=== PATIENT | female | born 1975 | race Caucasian/White ===

== ENCOUNTER 2018-07-31 20:40 | Emergency (ER) | payer OTHER ==
[2018-07-31 21:16] VITALS: BP 126/70; PULSE 92; TEMP 98; BMI 30.7
[2018-07-31] MEDS ORDERED: PENICILLIN G BENZATHINE 1,200,000 UNIT/2 ML PFS IM ONE (21:28)
[2018-07-31] MEDS ORDERED: DEXAMETHASONE LIQUID 0.5 MG/5 ML 240 ML BULK BOTTLE PO ONE (21:28)
[2018-07-31] MEDS ORDERED: PENICILLIN G BENZATHINE 2,400,000 UNIT/4 ML PFS ONE (21:30)
[2018-07-31] MEDS ORDERED: DEXAMETHASONE SOD PHOSPHATE 10 MG/1 ML VIAL ONE (21:30)
--- NOTE | 2018-07-31 21:32 | PDOC ---
History of Present Illness - General Chief Complaint: Sore Throat Stated Complaint: SINUSITIS Time Seen by Provider: 07/31/18 21:23 - History of Present Illness Initial Comments: 07/31/18 21:30 42-year-old female without comorbidities presents for evaluation of sore throat 2 days. No fever Past History - Past Medical History Allergies/Adverse Reactions: Allergies Allergy/AdvReac Type Severity Reaction Status Date / Time No Known Allergies Allergy Verified 03/12/16 14:08 Home Medications: Ambulatory Orders NK [No Known Home Medication] 03/12/16 Cardiac Disorders: No CVA: No COPD: No - Surgical History GI Surgery: Yes (GASTRIC BY-PASS) - Reproductive History (#): 7 Para: 3 Therapeutic (s) & number: No Spontaneous : 3 - Immunization History Immunization Up to Date: Yes - Suicide/Smoking/Psychosocial Hx Smoking Status: No Smoking History: Never smoked Have you smoked in the past 12 months: No Number of Cigarettes Smoked Daily: 0 Information on smoking cessation initiated: No Hx Alcohol Use: No Drug/Substance Use Hx: No Substance Use Type: None Review of Systems - Review of Systems Constitutional: No: Fever HEENTM: Yes: Throat Pain, Difficulty Swallowing *Physical Exam - Vital Signs Last Vital Signs Temp Pulse Resp BP Pulse Ox 98 F 92 H 20 126/70 98 07/31/18 21:11 07/31/18 21:11 07/31/18 21:11 07/31/18 21:11 07/31/18 21:11 - Physical Exam Comments: 07/31/18 21:31 HEAD: NC/AT EYES: Conjuntiva clear Ears: Canals and TM's normal NOSE: No d/c THROAT: Moist mucous membrances, oral pharanx erythemic with exudate, uvula midline NECK: Supple without adenopathy CARDIAC: S1 S2 LUNGS: CTA Full and Equal breath sounds ABDOMEN: Soft NT ND MS: Full ROM in all joints without edema NEUROLOGIC: No gross sensory or motor deficits, NVID SKIN: Normal color and temperature no lesions or rashes Moderate Sedation - Procedure Monitoring Vital Signs: Procedure Monitoring Vital Signs Temperature 98 F 07/31/18 21:11 Pulse Rate 92 H 07/31/18 21:11 Respiratory Rate 20 07/31/18 21:11 Blood Pressure 126/70 07/31/18 21:11 O2 Sat by Pulse Oximetry (%) 98 02/20/19 21:11 *DC/Admit/Observation/Transfer Diagnosis at time of Disposition: Strep pharyngitis - Discharge Dispostion Disposition: HOME Condition at time of disposition: Stable Decision to Admit order: No - Referrals Referrals: Sincere Elizalde MD [Primary Care Provider] - - Patient Instructions Printed Discharge Instructions: Strep Throat, DI for Strep Throat Additional Instructions: Laboratory such as Advil Motrin Aleve or ibuprofen or Naprosyn. He may take Tylenol for pain. Warm salt water gargles will help with her pain. He will given a one-time dose of antibiotic which will cure your strep throat. Follow- up with your primary care physician in one to 2 days for further evaluation and treatment options and return to the emergency room for worsening of symptoms. - Post Discharge Activity
== END 2018-07-31 22:00 | disposition home or self-care (01) ==
LOC: JERFT 20:40
DX: J02.0 Streptococcal pharyngitis (principal); B95.5 Unspecified streptococcus as the cause of diseases classified elsewhere
CPT/HCPCS: 99281-25

== ENCOUNTER 2018-09-29 23:31 | Inpatient (IN) | payer OTHER ==
[2018-09-30] MEDS ORDERED: ONDANSETRON 4 MG/2 ML VIAL IVPUSH ONE (01:30)
[2018-09-30] MEDS ORDERED: ONDANSETRON 4 MG/2 ML VIAL IVPB ONE (01:43)
[2018-09-30] MEDS ORDERED: ONDANSETRON 4 MG/2 ML VIAL ONE (01:43)
[2018-09-30] MEDS ORDERED: SODIUM CHLORIDE 1,000 ML IV STA (01:54)
[2018-09-30] MEDS ORDERED: ACETAMINOPHEN 1000 MG/100 ML VIAL (NON FORMULARY) IVPB ONE (01:54)
[2018-09-30 02:09] LABS: BASO % 0.2 % (0-2.0); EOS % 0.1 % (0-4.5); HEMATOCRIT 44.3 % (32.4-45.2); HEMOGLOBIN 14.7 GM/dL (10.7-15.3); LYMPH % 8.2 % (8-40); MCH 29.8 pg (25.7-33.7); MCHC 33.2 g/dl (32.0-36.0); MEAN CELL VOLUME 89.8 fl (80-96); MEAN PLT VOLUME 9.1 fl (7.5-11.1); MONO % 3.4 % (3.8-10.2); NEUT % 88.1 % (42.8-82.8); PLATELET COUNT 256 K/MM3 (134-434); RBC 4.93 M/mm3 (3.60-5.2); RDW 13.6 % (11.6-15.6); WHITE BLOOD COUNT 14.9 K/mm3 (4.0-10.0)
[2018-09-30 02:11] LABS: INR 1.03 (0.83-1.09); PROTHROMBIN TIME (PATIENT) 12.1 SEC (9.7-13.0)
[2018-09-30 02:24] LABS: ALBUMIN 4.4 g/dl (3.4-5.0); ALK PHOS 103 U/L (45-117); ANION GAP 8 MMOL/L (8-16); BILIRUBIN,TOTAL 0.7 mg/dL (0.2-1); BLOOD UREA NITROGEN 19 mg/dL (7-18); CHLORIDE 103 mmol/L (98-107); CO2 23 mmol/L (21-32); GLUCOSE,RANDOM 187 mg/dL (74-106); LIPASE 457 U/L (73-393); POTASSIUM 4.1 mmol/L (3.5-5.1); SGOT/AST 33 U/L (15-37); SGPT/ALT 50 U/L (13-61); SODIUM 134 mmol/L (136-145); TOT PROT 8.5 g/dl (6.4-8.2)
--- NOTE | 2018-09-30 02:25 | PDOC ---
History of Present Illness - General Chief Complaint: Nausea/Vomiting Stated Complaint: VOMITING Time Seen by Provider: 09/30/18 01:17 - History of Present Illness Initial Comments: 09/30/18 02:41 43F with pmh of gastric bypass and 3 presents with vomiting and URQ abdominal pain since 8pm today. She has been continuously vomiting since then. Hasn't been able to eat since then. No sick contacts. No pmh of gallstones. Past History - Past Medical History Allergies/Adverse Reactions: Allergies Allergy/AdvReac Type Severity Reaction Status Date / Time No Known Allergies Allergy Verified 09/30/18 00:03 Home Medications: Ambulatory Orders NK [No Known Home Medication] 03/12/16 Cardiac Disorders: No CVA: No COPD: No Other medical history: Pt denies - Surgical History GI Surgery: Yes (GASTRIC BY-PASS) - Reproductive History (#): 7 Para: 3 Therapeutic (s) & number: No Spontaneous : 3 - Immunization History Immunization Up to Date: Yes - Suicide/Smoking/Psychosocial Hx Smoking Status: No Smoking History: Never smoked Have you smoked in the past 12 months: No Number of Cigarettes Smoked Daily: 0 Information on smoking cessation initiated: No Hx Alcohol Use: No Drug/Substance Use Hx: No Substance Use Type: None Review of Systems - Review of Systems Able to Perform ROS?: Yes Is the patient limited Monegasque proficient: No Constitutional: Yes: Loss of Appetite. No: Fever HEENTM: No: Symptoms Reported Respiratory: No: Symptoms reported Cardiac (ROS): No: Symptoms Reported ABD/GI: Yes: See HPI : No: Symptoms Reported Musculoskeletal: No: Symptoms Reported Integumentary: No: Symptoms Reported Neurological: No: Symptoms reported All Other Systems: Reviewed and Negative *Physical Exam - Vital Signs Last Vital Signs Temp Pulse Resp BP Pulse Ox 97.7 F 77 20 115/75 100 09/30/18 00:04 09/30/18 00:04 09/30/18 00:04 09/30/18 00:04 09/30/18 00:04 - Physical Exam General Appearance: Yes: Moderate Distress, Obese HEENT: positive: EOMI, AIDEE, Normal ENT Inspection Respiratory/Chest: positive: Lungs Clear, Normal Breath Sounds. negative: Chest Tender, Respiratory Distress Cardiovascular: positive: Regular Rhythm, Regular Rate, S1, S2 Gastrointestinal/Abdominal: positive: Normal Bowel Sounds, Tender (URQ tenderness and epigastric), Flat, Soft Musculoskeletal: positive: Normal Inspection. negative: CVA Tenderness Extremity: positive: Normal Capillary Refill, Normal Inspection, Normal Range of Motion Integumentary: positive: Normal Color, Dry, Warm Neurologic: positive: Fully Oriented, Alert, Normal Mood/Affect ED Treatment Course - LABORATORY CBC & Chemistry Diagram: 09/30/18 01:48 09/30/18 01:48 - ADDITIONAL ORDERS Additional order review: Laboratory Results 09/30/18 09/30/18 01:48 01:48 PT with INR 12.10 INR 1.03 Serum , Qual Negative 09/30/18 01:48 RBC 4.93 MCV 89.8 MCHC 33.2 RDW 13.6 D MPV 9.1 Neutrophils % 88.1 H D Lymphocytes % 8.2 D Monocytes % 3.4 L Eosinophils % 0.1 D Basophils % 0.2 - RADIOLOGY Radiology Studies Ordered: Category Date Time Status ABDOMEN US -LIMITED [US] Stat Ultrasound 09/30/18 01:29 Taken - Medications Given in the ED: ED Medications Discontinued Medications Generic Name Dose Route Start Last Admin Trade Name Freq PRN Reason Stop Dose Admin Ondansetron HCl 4 mg 09/30/18 01:30 09/30/18 01:47 Zofran Injection IVPUSH 09/30/18 01:31 Not Given ONCE ONE Ondansetron HCl 8 mg 09/30/18 01:43 09/30/18 01:47 Zofran Injection IVPB 09/30/18 01:44 8 mg ONCE ONE Administration Medical Decision Making - Medical Decision Making 09/30/18 03:13 43f with pmh of abdominal pain and vomiting. Cholecystitis vs pancreatitis vs choledocholithiasis vs sbo vs gastritis Bedside US performed, found sonographic perry's, sludge in the gb, mildly enlarged anterior wall and dilated cbd Official US : positive for dilated CBD, unable to see pancreas Patient has leukocytosis, elevated lipase Less likely to be cholecystitis du to absence of visible stones. Possible choledocholithiasis however no bili and alk phos within normal limits. Giving the patient zofran, NS, tylenol and ABX. Spoke to Dr. Bejarano who admitted the patient and ask for consult with Dr. Grijalva. Lactic acid came back at 2.5. Due to history of 4 abdominal surgeries we will r/o obstruction with ct abdomen and pelvis with IV and PO contrast. Patient unable to tolerate PO contrast. Possibly obstructed? Will obtain CT now. *DC/Admit/Observation/Transfer Diagnosis at time of Disposition: Dilated cbd, acquired, Elevated lipase, Leukocytosis, Lactic acid acidosis - Discharge Dispostion Condition at time of disposition: Guarded Decision to Admit order: Yes - Referrals - Patient Instructions - Post Discharge Activity
[2018-09-30] MEDS ORDERED: ACETAMINOPHEN INJECTION 100 ML IVPB ONE (02:30)
[2018-09-30] MEDS ORDERED: PIPERACILLIN/TAZOB 4.5 GM 4.5 GM in DEXTROSE 5%-WATER 100 ML IVPB ONE (02:52)
[2018-09-30] MEDS ORDERED: morphine CARPU-JECT 4 MG/1 ML DISP.SYRIN IVPUSH PRN (03:12)
[2018-09-30] MEDS ORDERED: DEXTROSE 5%-0.45% SALINE 1,000 ML IV SCH (03:15)
[2018-09-30] MEDS ORDERED: ACETAMINOPHEN 1000 MG/100 ML VIAL (NON FORMULARY) IVPB PRN (03:16)
[2018-09-30] MEDS ORDERED: PIPERACILLIN/TAZOB 4.5 GM 4.5 GM/100 ML BAG IVPB ONE (03:19)
--- NOTE | 2018-09-30 04:31 | PDOC ---
*Physical Exam - Vital Signs Last Vital Signs Temp Pulse Resp BP Pulse Ox 97.7 F 77 20 115/75 100 09/30/18 00:04 09/30/18 00:04 09/30/18 00:04 09/30/18 00:04 09/30/18 00:04 ED Treatment Course - LABORATORY CBC & Chemistry Diagram: 09/30/18 01:48 09/30/18 01:48 - ADDITIONAL ORDERS Additional order review: Laboratory Results 09/30/18 09/30/18 09/30/18 01:48 01:48 01:48 PT with INR 12.10 INR 1.03 Sodium Potassium Chloride Carbon Dioxide Anion Gap BUN Creatinine Creat Clearance w eGFR Random Glucose Lactic Acid 2.5 H* Calcium Total Bilirubin AST ALT Alkaline Phosphatase Troponin I Total Protein Albumin Lipase Serum , Qual Blood Type O POSITIVE Antibody Screen Negative 09/30/18 09/30/18 01:48 01:48 PT with INR INR Sodium 134 L Potassium 4.1 Chloride 103 Carbon Dioxide 23 Anion Gap 8 BUN 19 H Creatinine 1.0 Creat Clearance w eGFR 60.23 Random Glucose 187 H Lactic Acid Calcium 10.0 Total Bilirubin 0.7 AST 33 ALT 50 Alkaline Phosphatase 103 Troponin I < 0.02 Total Protein 8.5 H Albumin 4.4 Lipase 457 H Serum , Qual Negative Blood Type Antibody Screen 09/30/18 01:48 RBC 4.93 MCV 89.8 MCHC 33.2 RDW 13.6 D MPV 9.1 Neutrophils % 88.1 H D Lymphocytes % 8.2 D Monocytes % 3.4 L Eosinophils % 0.1 D Basophils % 0.2 - RADIOLOGY Radiology Studies Ordered: Category Date Time Status ABDOMEN US -LIMITED [US] Stat Ultrasound 09/30/18 01:29 Taken - Medications Given in the ED: ED Medications Discontinued Medications Generic Name Dose Route Start Last Admin Trade Name Freq PRN Reason Stop Dose Admin Acetaminophen 1,000 mg 09/30/18 01:54 09/30/18 02:34 Ofirmev Injection - IVPB 09/30/18 01:55 1,000 mg ONCE ONE Administration Sodium Chloride 1,000 mls @ 1,000 mls/hr 09/30/18 01:54 09/30/18 03:33 Normal Saline - IV 09/30/18 02:53 1,000 mls/hr ASDIR STA Administration Piperacillin Sod/Tazobactam 100 mls @ 200 mls/hr 09/30/18 02:52 09/30/18 03: 54 Sod 4.5 gm/ Dextrose IVPB 09/30/18 03:21 200 mls/hr ONCE ONE Administration Protocol Ondansetron HCl 4 mg 09/30/18 01:30 09/30/18 01:47 Zofran Injection IVPUSH 09/30/18 01:31 Not Given ONCE ONE Ondansetron HCl 8 mg 09/30/18 01:43 09/30/18 01:47 Zofran Injection IVPB 09/30/18 01:44 8 mg ONCE ONE Administration Medical Decision Making - Medical Decision Making 09/30/18 04:29 Ct abdomen with contrast: There is a small bowel obstruction small bowel dilated up to 3.9 cm. Small bowel anastomosis is noted in the left mid abdomen but this does not appear to be the transition point. No abscess or free air. Consulted Dr. Cloud who will see the patient. Placing NG tube. *DC/Admit/Observation/Transfer Diagnosis at time of Disposition: Small bowel obstruction - Discharge Dispostion Condition at time of disposition: Guarded - Referrals - Patient Instructions - Post Discharge Activity
[2018-09-30] MEDS ORDERED: morphine CARPU-JECT 2 MG/1 ML DISP.SYRIN IVPUSH ONE (04:49)
[2018-09-30] MEDS ORDERED: morphine SULFATE 4 MG/ML VIAL ONE (05:22)
[2018-09-30 06:00] LABS: BASO % 0.2 % (0-2.0); HEMATOCRIT 41.6 % (32.4-45.2); HEMOGLOBIN 13.8 GM/dL (10.7-15.3); LYMPH % 3.7 % (8-40); MCH 29.5 pg (25.7-33.7); MEAN CELL VOLUME 89.3 fl (80-96); MEAN PLT VOLUME 8.9 fl (7.5-11.1); MONO % 2.3 % (3.8-10.2); NEUT % 93.8 % (42.8-82.8); PLATELET COUNT 250 K/MM3 (134-434); RBC 4.66 M/mm3 (3.60-5.2); RDW 13.5 % (11.6-15.6); WHITE BLOOD COUNT 12.8 K/mm3 (4.0-10.0)
[2018-09-30] MEDS ORDERED: LACTATED RINGERS SOLUTION 1,000 ML/1,000 ML INFUS.BAG IV STA (06:00)
[2018-09-30 06:25] LABS: AMYLASE 109 U/L (25-115); LIPASE 419 U/L (73-393)
[2018-09-30 06:29] LABS: ALK PHOS 93 U/L (45-117); ANION GAP 7 MMOL/L (8-16); BILIRUBIN,TOTAL 0.8 mg/dL (0.2-1); BLOOD UREA NITROGEN 17 mg/dL (7-18); CALCIUM 8.7 mg/dL (8.5-10.1); CHLORIDE 107 mmol/L (98-107); CO2 24 mmol/L (21-32); GLUCOSE,RANDOM 161 mg/dL (74-106); POTASSIUM 5.4 mmol/L (3.5-5.1); SGOT/AST 34 U/L (15-37); SGPT/ALT 45 U/L (13-61); SODIUM 137 mmol/L (136-145); TOT PROT 7.4 g/dl (6.4-8.2)
[2018-09-30] MEDS ORDERED: INSULIN SLIDING SCALE (NOVOLOG) 1 VIAL SQ SCH (07:00)
--- NOTE | 2018-09-30 07:32 | CON.GI ---
Consult Consult Specialty:: GI Referred by:: Dr. Carolynn Bejarano Reason for Consultation:: Dilated CBD and elevaed lipase - History of Present Illness Chief Complaint: Abdominal pain with nausea and vomiting History of Present Illness: Patient is a 43 y/o female with no significant past medical history. Patient states that after eating dinner last night she develop right sided abdominal pain accmpanied with abdominal bloating. Patient took Milk of Magnesia without relief. Shortly after patient began experiencing nausea with vomiting. At first vomitus consisted of food contents then turned to a "phlegm" color. While vomiting patient stated she felt sweaty and had chills. While in ER labs initially noted with leukocytosis (WBC 14,900), elevated lactic acid 2.5, elevated lipase 457, normal LFTs and amylase. In ER NGT placed and is currently at LCS with 300cc brownish-red output. Patient states since NGT placed abdominal pain is better. Abdominal CT scan preliminary reading shows SBO without abscess, free airor discrete transition point. 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: Alzheimer's, CVA, Dementia, Migraine, Multiple Sclerosis, Peripheral Neuropathy, Parkinson's, Seizure, Syncope, TIA, Vertigo, Other Cardio/Vascular: No: AFIB, Aneurysm, Aortic Insufficiency, Aortic Stenosis, CAD , CHF, Deep Vein Thrombosis, HTN, Hyperlipdemia, DE, Mitral Insufficiency, Mitral Stenosis, Murmur, Pulmonary Hypertension, Other Pulmonary: No: Asthma, Bronchitis, Cancer, COPD, O2 Dependent, Pneumonia, Previously Intubated, Pulmonary Embolus, Pulmonary Fibrosis, Sleep Apnea, Other Gastrointestinal: No: Ascites, Cancer, Constipation, Crohn's Disease, Diverticulitis, Diverticulosis, Esophageal Varices, Gastritis, GERD, GI Bleed, Hemorrhoids, Hiatal Hernia, Inflamatory Bowel Disease, Irritable Bowel Disease, Pancreatitis, Peptic Ulcer Disease, Ulcerative Colitis, Other Hepatobiliary: No: Cirrhosis, Cholelithiasis, Cholecystitis, Choledocholithiasis , Hepatitis A, Hepatitis B, Hepatitis C, Other Renal/: No: Renal Failure, Renal Inusuff, BPH, Cancer, Hematuria, Hemodialysis , Neurogenic Bladder, Renal Calculi, UTI, Other Reproductive: No: Ectopic , Endometriosis, Fibroids, PID, Polycystic Ovary Syndrome, Postmenopausal, Other ...LMP: 04/07/12 Heme/Onc: No: Anemia, B12 Deficiency, Bleeding Disorder, Cancer, Current Chemotherapy, Current Radiation Therapy, Hemochromatosis, Hypercoaguable State, Myeloproliferative Synd, Sickle Cell Disease, Sickle Cell Trait, Thrombocytopenia, Other Infectious Disease: No: AIDS, C-Diff, Herpes Zoster, HIV, MRSA, STD's, Tuberculosis, VREF, Other Psych: No: Addictions, Anxiety, Bipolar, Depression, Panic, Psychosis, Schizophrenia, Other Musculoskeletal: No: Bursitis, Chronic low back pain, Hemiparesis, Hemiplegia, Osteoarthritis, Paraplegia, Other Rheumatology: No: Fibromyalgia, Gout, Lupus, Rheumatoid Arthritis, Sarcoidosis, Vasculitis, Other ENT: No: Allergic Rhinitis, Sinusitis, Other Endocrine: No: [place]'s Disease, Ekaterina's Disease, Diabetes Insipidus, Diabetes Mellitus, Hyperparathyroidism, Hyperthyroidism, Hypothyroidism, Osteopenia, SIADH, Other Dermatology: No: Basal Cell, Cellulitis, Eczema, Melanoma, Psoriasis, Squamous Cell, Other - Past Surgical History Past Surgical History: Yes: Bariatric Surgery (2004), (x 3) - Alcohol/Substance Use Hx Alcohol Use: No - Smoking History Smoking history: Never smoked Have you smoked in the past 12 months: No Aproximately how many cigarettes per day: 0 - Social History History of Recent Travel: No Home Medications - Allergies Allergies/Adverse Reactions: Allergies Allergy/AdvReac Type Severity Reaction Status Date / Time No Known Allergies Allergy Verified 09/30/18 00:03 - Home Medications Home Medications: Ambulatory Orders NK [No Known Home Medication] 03/12/16 Family Disease History - Family Disease History Other Family History: Maternal Uncle-Colon Cancer, diagnosed in his 70s Review of Systems - Review of Systems Constitutional: reports: No Symptoms Eyes: reports: No Symptoms HENT: reports: No Symptoms Neck: reports: No Symptoms Cardiovascular: reports: No Symptoms Respiratory: reports: No Symptoms Gastrointestinal: reports: Abdominal Pain, Bloating, Nausea, Vomiting Genitourinary: reports: No Symptoms Breasts: reports: No Symptoms Reported Musculoskeletal: reports: No Symptoms Integumentary: reports: No Symptoms Neurological: reports: No Symptoms Endocrine: reports: No Symptoms Hematology/Lymphatic: reports: No Symptoms Psychiatric: reports: No Symptoms Physical Exam-GI Vital Signs: Vital Signs Temperature 97.9 F 09/30/18 05:50 Pulse Rate 78 09/30/18 05:50 Respiratory Rate 20 09/30/18 00:04 Blood Pressure 114/79 09/30/18 05:50 O2 Sat by Pulse Oximetry (%) 99 09/30/18 05:50 Constitutional: Yes: Well Nourished, No Distress, Calm Eyes: Yes: Conjunctiva Clear HENT: Yes: Atraumatic Cardiovascular: Yes: Regular Rate and Rhythm Respiratory: Yes: Regular, CTA Bilaterally Gastrointestinal Inspection: Yes: Scars. No: WNL, Ascites, Distention, Hernia, Other ...Auscultate: Yes: Hypoactive Bowel Sounds. No: Normoactive Bowel Sounds, Hyperactive Bowel Sounds, No Bowel Sounds, Other ...Palpate: Yes: Soft. No: Firm/Rigid, Guarding, Hepatomegaly, Mass, Pulsatile Mass, Splenomegaly, Tenderness, Tenderness, Epigastium, Tenderness, Rebound, Other ...Percussion: Yes: Other (high tympay). No: Dullness, Fluid Wave, Tympanitic Labs: CBC, BMP 09/30/18 05:43 09/30/18 05:43 INR, PTT INR 1.03 (0.83-1.09) 09/30/18 01:48 Active Medications Generic Name Dose Route Start Last Admin Trade Name Freq PRN Reason Stop Dose Admin Acetaminophen 1,000 mg 09/30/18 03:16 Ofirmev Injection - IVPB Q6H PRN pain Heparin Sodium (Porcine) 5,000 unit 09/30/18 10:00 Heparin - SQ BID RACHEL Metronidazole 500 mg in 100 mls @ 100 mls/hr 09/30/18 10:00 Flagyl 500mg Premixed Ivpb - IVPB Q8H-IV RACHEL Piperacillin Sod/Tazobactam 50 mls @ 100 mls/hr 09/30/18 10:00 Sod 3.375 gm/ Dextrose IVPB Q8H-IV RACHEL Protocol Dextrose/Sodium Chloride 1,000 mls @ 75 mls/hr 09/30/18 03:15 D5-1/2ns - IV ASDIR RACHEL Piperacillin Sod/Tazobactam 50 mls @ 100 mls/hr 09/30/18 10:00 Sod 3.375 gm/ Dextrose IVPB 09/30/18 18:29 Q8H-IV RACHEL Problem List - Problems (1) Small bowel obstruction Assessment/Plan: R>SBO R/O Small bowel ischemia >continue IV hydration but will change from D5 1/2NS to NS at 150cc/hr >NGT to LCS >serial abdominal exams >surgical follow up Code(s): K56.609 - UNSP INTESTNL OBST, UNSP TO PARTIAL VERSUS COMPLETE OBST (2) Dilated cbd, acquired Assessment/Plan: >hx of previous gastric bypass R>MRCP R/O CBD stone--if CBD stone present need to transfer to tertiary center for management Code(s): K83.8 - OTHER SPECIFIED DISEASES OF BILIARY TRACT
[2018-09-30 09:45] LABS: ANISOCYTOSIS 0; HELMET CELLS 0; HOWELL-JOLLY BODIES 0; MACROCYTOSIS 0; OVALOCYTE 0; PLATELET ESTIMATE NORMAL; ROULEAU 0; SICKELED CELLS 0; TARGET CELLS 0; TEAR DROP CELLS 0; TOXIC GRANULATION 0
[2018-09-30] MEDS ORDERED: PIPERACILLIN/TAZOB 3.375 GM 3.375 GM in DEXTROSE 5%-WATER - 50 ML IVPB SCH (10:00)
[2018-09-30] MEDS ORDERED: HEPARIN NA (PORCINE) 5,000 UNITS/ML 1ML VIAL SQ SCH (10:00)
--- NOTE | 2018-09-30 10:06 | CONSULT ---
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 PMHx: none PSHx: open RYGB/C-S Home Medications Medication Instructions Recorded NK [No Known Home Medication] 03/12/16 Allergies Allergy/AdvReac Type Severity Reaction Status Date / Time No Known Allergies Allergy Verified 09/30/18 00:03 REVIEW OF SYSTEMS: CONSTITUTIONAL: Absent: fever, chills, diaphoresis, generalized weakness, malaise, loss of appetite, weight change CARDIOVASCULAR: Absent: chest pain, syncope, palpitations, irregular heart rate, lightheadedness , peripheral edema RESPIRATORY: Absent: cough, shortness of breath, dyspnea with exertion, wheezing, stridor, hemoptysis GASTROINTESTINAL: Present: abdominal pain, abdominal distension, nausea, vomiting, Absent: diarrhea, constipation, melena, hematochezia GENITOURINARY: Absent: dysuria, frequency, urgency, hesitancy, hematuria, flank pain, genital pain MUSCULOSKELETAL: Absent: myalgia, arthralgia, joint swelling, back pain, neck pain SKIN: Absent: rash, itching, pallor HEMATOLOGIC/IMMUNOLOGIC: Absent: easy bleeding, easy bruising, lymphadenopathy NEUROLOGIC: Absent: headache, focal weakness, paresthesias, dizziness, unsteady gait, seizure, mental status changes, bladder or bowel incontinence PSYCHIATRIC: Absent: anxiety, depression, suicidal or homicidal ideation, hallucinations. PHYSICAL EXAM: GENERAL: Awake, alert, and fully oriented, in no acute distress. HEAD: Normal with no signs of trauma. EYES: sclera anicteric, conjunctiva clear. NECK: Normal ROM, supple without lymphadenopathy, JVD, or masses. ABDOMEN: Soft, nontender, not distended, normoactive bowel sounds, no guarding, no rebound, no masses. No organomegaly. No hernias; healed scars; no tympany. MUSCULOSKELETAL: Normal ROM at all joints. No bony deformities or tenderness. No CVA tenderness. UPPER EXTREMITIES: 2+ pulses, warm, well-perfused. No cyanosis. Cap refill <2 seconds. No peripheral edema. LOWER EXTREMITIES: 2+ pulses, warm, well-perfused. No calf tenderness. No peripheral edema. NEUROLOGICAL: Normal speech, gait not observed. PSYCH: Cooperative. Good eye contact. Appropriate mood and affect. SKIN: Warm, dry, normal turgor, no rashes or lesions noted. Vital Signs Temperature 98.4 F 09/30/18 07:40 Pulse Rate 88 09/30/18 07:40 Respiratory Rate 16 09/30/18 07:40 Blood Pressure 102/72 09/30/18 07:40 O2 Sat by Pulse Oximetry (%) 100 09/30/18 07:40 Lab Results WBC 12.8 K/mm3 (4.0-10.0) H 09/30/18 05:43 RBC 4.66 M/mm3 (3.60-5.2) 09/30/18 05:43 Hgb 13.8 GM/dL (10.7-15.3) 09/30/18 05:43 Hct 41.6 % (32.4-45.2) 09/30/18 05:43 MCV 89.3 fl (80-96) 09/30/18 05:43 MCHC 33.0 g/dl (32.0-36.0) 09/30/18 05:43 RDW 13.5 % (11.6-15.6) 09/30/18 05:43 Plt Count 250 K/MM3 (134-434) 09/30/18 05:43 Sodium 137 mmol/L (136-145) 09/30/18 05:43 Potassium 5.4 mmol/L (3.5-5.1) H 09/30/18 05:43 Chloride 107 mmol/L (98-107) 09/30/18 05:43 Carbon Dioxide 24 mmol/L (21-32) 09/30/18 05:43 Anion Gap 7 MMOL/L (8-16) L 09/30/18 05:43 BUN 17 mg/dL (7-18) 09/30/18 05:43 Creatinine 1.0 mg/dL (0.55-1.3) 09/30/18 05:43 Random Glucose 161 mg/dL (74-106) H 09/30/18 05:43 Calcium 8.7 mg/dL (8.5-10.1) 09/30/18 05:43 Blood Type O POSITIVE 09/30/18 01:48 Antibody Screen Negative 09/30/18 01:48 INR 1.03 (0.83-1.09) 09/30/18 01:48 CT scan a/p reviewed IMP:SBO PLAN: NPO/IVF/NGT?serial exams and imaging studies; will f/u. Iván Erazo MD FACS
[2018-09-30] MEDS: SODIUM CHLORIDE 1,000 ML IV SCH (11:45)
--- NOTE | 2018-09-30 13:19 | HP ---
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: Alzheimer's, CVA, Dementia, Migraine, Multiple Sclerosis, Peripheral Neuropathy, Parkinson's, Seizure, Syncope, TIA, Vertigo, Other Cardiovascular: No: AFIB, Aneurysm, Aortic Insufficiency, Aortic Stenosis, CAD, CHF, Deep Vein Thrombosis, HTN, Hyperlipdemia, [place], Mitral Insufficiency, Mitral Stenosis, Murmur, Pulmonary Hypertension, Other Pulmonary: No: Asthma, Bronchitis, Cancer, COPD, O2 Dependent, Pneumonia, Previously Intubated, Pulmonary Embolus, Pulmonary Fibrosis, Sleep Apnea, Other Gastrointestinal: No: Ascites, Cancer, Constipation, Crohn's Disease, Diverticulitis, Diverticulosis, Esophageal Varices, Gastritis, GERD, GI Bleed, Hemorrhoids, Hiatal Hernia, Inflamatory Bowel Disease, Irritable Bowel Disease, Pancreatitis, Peptic Ulcer Disease, Ulcerative Colitis, Other Hepatobiliary: No: Cirrhosis, Cholelithiasis, Cholecystitis, Choledocholithiasis , Hepatitis A, Hepatitis B, Hepatitis C, Other Renal/: No: Renal Failure, Renal Inusuff, BPH, Cancer, Hematuria, Hemodialysis , Neurogenic Bladder, Renal Calculi, UTI, Other ...LMP: 04/07/12 Heme/Onc: No: Anemia, B12 Deficiency, Bleeding Disorder, Cancer, Current Chemotherapy, Current Radiation Therapy, Hemochromatosis, Hypercoaguable State, Myeloproliferative Synd, Sickle Cell Disease, Sickle Cell Trait, Thrombocytopenia, Other Infectious Disease: No: AIDS, C-Diff, Herpes Zoster, HIV, MRSA, STD's, Tuberculosis, VREF, Other Psych: No: Addictions, Anxiety, Bipolar, Depression, Panic, Psychosis, Schizophrenia, Other Musculoskeletal: No: Bursitis, Chronic low back pain, Hemiparesis, Hemiplegia, Osteoarthritis, Paraplegia, Other Rheumatology: No: Fibromyalgia, Gout, Lupus, Rheumatoid Arthritis, Sarcoidosis, Vasculitis, Other ENT: No: Allergic Rhinitis, Sinusitis, Other Endocrine: No: Amol's Disease, Ekaterina's Disease, Diabetes Insipidus, Diabetes Mellitus, Hyperparathyroidism, Hyperthyroidism, Hypothyroidism, Osteopenia, SIADH, Other Dermatology: No: Basal Cell, Cellulitis, Eczema, Melanoma, Psoriasis, Squamous Cell, Other - Past Surgical History Past Surgical History: Yes: Bariatric Surgery (2005), (x 3) - Smoking History Smoking history: Never smoked Have you smoked in the past 12 months: No Aproximately how many cigarettes per day: 0 - Alcohol/Substance Use Hx Alcohol Use: No - Social History History of Recent Travel: No Home Medications - Allergies Allergies/Adverse Reactions: Allergies Allergy/AdvReac Type Severity Reaction Status Date / Time No Known Allergies Allergy Verified 09/30/18 00:03 - Home Medications Home Medications: Ambulatory Orders NK [No Known Home Medication] 03/12/16 Family Disease History - Family Disease History Other Family History: Maternal Uncle-Colon Cancer, diagnosed in his 70s Physical Examination Vital Signs: Vital Signs Temperature 98.4 F 09/30/18 07:40 Pulse Rate 88 09/30/18 07:40 Respiratory Rate 16 09/30/18 07:40 Blood Pressure 102/72 09/30/18 07:40 O2 Sat by Pulse Oximetry (%) 100 09/30/18 07:40 Labs: CBC, BMP 09/30/18 05:43 09/30/18 05:43 Problem List - Problems (1) Small bowel obstruction Code(s): K56.609 - UNSP INTESTNL OBST, UNSP TO PARTIAL VERSUS COMPLETE OBST
--- NOTE | 2018-09-30 14:19 | CON.ID ---
Consult Consult Specialty:: infectious diseases Referred by:: Reason for Consultation:: int obstruction,leukocytosis - History of Present Illness Chief Complaint: abd pain nausea,vomiting History of Present Illness: 43F with pmh of gastric bypass and 3 presents with vomiting and URQ abdominal pain patient mentins that she has been continuously vomiting patient got evalauted and found to be in obstruction an ng tube was placed currently the patient feels better but says the ng tube is bothering her no other issues ng tube did drain a lot - History Source History Provided By: Patient Limitations to Obtaining History: No Limitations - 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, CVA, Dementia, Migraine, Multiple Sclerosis, Peripheral Neuropathy, Parkinson's, Seizure, Syncope, TIA, Vertigo, Other Cardio/Vascular: No: AFIB, Aneurysm, Aortic Insufficiency, Aortic Stenosis, CAD , CHF, Deep Vein Thrombosis, HTN, Hyperlipdemia, [place], Mitral Insufficiency, Mitral Stenosis, Murmur, Pulmonary Hypertension, Other Pulmonary: No: Asthma, Bronchitis, Cancer, COPD, O2 Dependent, Pneumonia, Previously Intubated, Pulmonary Embolus, Pulmonary Fibrosis, Sleep Apnea, Other Gastrointestinal: No: Ascites, Cancer, Constipation, Crohn's Disease, Diverticulitis, Diverticulosis, Esophageal Varices, Gastritis, GERD, GI Bleed, Hemorrhoids, Hiatal Hernia, Inflamatory Bowel Disease, Irritable Bowel Disease, Pancreatitis, Peptic Ulcer Disease, Ulcerative Colitis, Other Hepatobiliary: No: Cirrhosis, Cholelithiasis, Cholecystitis, Choledocholithiasis , Hepatitis A, Hepatitis B, Hepatitis C, Other Renal/: No: Renal Failure, Renal Inusuff, BPH, Cancer, Hematuria, Hemodialysis , Neurogenic Bladder, Renal Calculi, UTI, Other ...LMP: 04/07/12 Infectious Disease: No: AIDS, C-Diff, Herpes Zoster, HIV, MRSA, STD's, Tuberculosis, VREF, Other Psych: No: Addictions, Anxiety, Bipolar, Depression, Panic, Psychosis, Schizophrenia, Other Musculoskeletal: No: Bursitis, Chronic low back pain, Hemiparesis, Hemiplegia, Osteoarthritis, Paraplegia, Other Rheumatology: No: Fibromyalgia, Gout, Lupus, Rheumatoid Arthritis, Sarcoidosis, Vasculitis, Other ENT: No: Allergic Rhinitis, Sinusitis, Other Endocrine: No: Amol's Disease, Ekaterina's Disease, Diabetes Insipidus, Diabetes Mellitus, Hyperparathyroidism, Hyperthyroidism, Hypothyroidism, Osteopenia, SIADH, Other Dermatology: No: Basal Cell, Cellulitis, Eczema, Melanoma, Psoriasis, Squamous Cell, Other - Past Surgical History Past Surgical History: Yes: Bariatric Surgery (2004), (x 3) - Alcohol/Substance Use Hx Alcohol Use: No - Smoking History Smoking history: Never smoked Have you smoked in the past 12 months: No Aproximately how many cigarettes per day: 0 - Social History History of Recent Travel: No Home Medications - Allergies Allergies/Adverse Reactions: Allergies Allergy/AdvReac Type Severity Reaction Status Date / Time No Known Allergies Allergy Verified 09/30/18 00:03 - Home Medications Home Medications: Ambulatory Orders NK [No Known Home Medication] 03/12/16 Family Disease History - Family Disease History Other Family History: Maternal Uncle-Colon Cancer, diagnosed in his 70s Review of Systems - Review of Systems Constitutional: reports: No Symptoms Eyes: reports: No Symptoms HENT: reports: No Symptoms Neck: reports: No Symptoms Cardiovascular: reports: No Symptoms Respiratory: reports: No Symptoms Gastrointestinal: reports: Abdominal Pain, Nausea, Vomiting Genitourinary: reports: No Symptoms Musculoskeletal: reports: No Symptoms Integumentary: reports: No Symptoms Neurological: reports: No Symptoms Endocrine: reports: No Symptoms Hematology/Lymphatic: reports: No Symptoms Psychiatric: reports: No Symptoms Physical Exam Vital Signs: Vital Signs Temperature 98.4 F 09/30/18 07:40 Pulse Rate 88 09/30/18 07:40 Respiratory Rate 16 09/30/18 07:40 Blood Pressure 102/72 09/30/18 07:40 O2 Sat by Pulse Oximetry (%) 100 09/30/18 07:40 Constitutional: Yes: Well Nourished, Calm, Mild Distress Eyes: Yes: Conjunctiva Clear Cardiovascular: Yes: Regular Rate and Rhythm Respiratory: Yes: Regular Gastrointestinal: Yes: Other (absent bowel sounds) Musculoskeletal: Yes: WNL Extremities: Yes: WNL Neurological: Yes: Alert, Oriented Psychiatric: Yes: Alert, Oriented Labs: CBC, BMP 09/30/18 05:43 09/30/18 05:43 Imaging - Results Chest X-ray: Report Reviewed, Image Reviewed Cat Scan: Report Reviewed, Image Reviewed Assessment/Plan high grade int obstruction nausea vomiting leukocytosis plan will start on empiric abx ng tube suctioning monitor closely surgery on case rest as per the team gi on case hydration
--- NOTE | 2018-09-30 14:20 | EKG ---
Test Reason : Blood Pressure : / mmHG Vent. Rate : 089 BPM Atrial Rate : 089 BPM P-R Int : 138 ms QRS Dur : 068 ms QT Int : 366 ms P-R-T Axes : 057 054 055 degrees QTc Int : 445 ms NORMAL SINUS RHYTHM NORMAL ECG WHEN COMPARED WITH ECG OF 12-MAR-2016 14:07, NO SIGNIFICANT CHANGE WAS FOUND Confirmed by PUJA GRAVES MD ([id number]) on 09/30/2018 2:20:27 PM Referred By: Confirmed By:PUJA GRAVES MD
[2018-09-30] MEDS ORDERED: PIPERACILLIN/TAZOB 3.375 GM 3.375 GM/50 ML BAG IVPB ONE (18:46)
[2018-09-30] MEDS: PIPERACILLIN/TAZOB 3.375 GM 3.375 GM in DEXTROSE 5%-WATER - 50 ML IVPB SCH (18:48)
[2018-09-30 21:46] VITALS: BMI 32.9
[2018-10-01] MEDS ORDERED: PIPERACILLIN/TAZOBACTAM 3.375 GM VIAL IVPB ONE ×3 (00:44→17:05)
[2018-10-01] MEDS ORDERED: DEXTROSE 5%-WATER - 50 ML IVPB ONE ×3 (00:44→17:05)
[2018-10-01] MEDS: SODIUM CHLORIDE 1,000 ML IV SCH ×2 (02:18→09:39)
[2018-10-01] MEDS: PIPERACILLIN/TAZOB 3.375 GM 3.375 GM in DEXTROSE 5%-WATER - 50 ML IVPB SCH ×3 (02:18→17:10)
--- NOTE | 2018-10-01 07:38 | PN ---
Progress Note, Physician History of Present Illness: GI FOLLOW UP NOTE Patient examined and case discussed with Dr. Grijalva Patient states abdominal pain has improved. Official read of Abd/Pelvic CT scan shows high grade partial SBO with transition point most likely within mid to right pelvis. Last labs from 09/30 (0523 am) show elevated WBC 12,800. NGT to LCS with 150cc whitish clear output. No reports of having BM but states is passing flatus. Patient denies abdominal pain, nausea, vomiting. - Current Medication List Current Medications: Active Medications Acetaminophen (Ofirmev Injection -) 1,000 mg IVPB Q6H PRN PRN Reason: pain Sodium Chloride (Normal Saline -) 1,000 mls @ 150 mls/hr IV ASDIR RACHEL Stop: 10/02/18 14:54 Last Admin: 10/01/18 02:18 Dose: 150 mls/hr Piperacillin Sod/Tazobactam (Sod 3.375 gm/ Dextrose) 50 mls @ 100 mls/hr IVPB Q8H-IV RACHEL; Protocol Last Admin: 10/01/18 02:18 Dose: 100 mls/hr - Objective Vital Signs: Vital Signs Temperature 99.3 F 10/01/18 06:00 Pulse Rate 78 10/01/18 06:00 Respiratory Rate 18 10/01/18 06:00 Blood Pressure 115/70 10/01/18 06:00 O2 Sat by Pulse Oximetry (%) 100 09/30/18 21:00 Constitutional: Yes: No Distress, Calm Eyes: Yes: Conjunctiva Clear HENT: Yes: Atraumatic Cardiovascular: Yes: Regular Rate and Rhythm Respiratory: Yes: Regular, CTA Bilaterally Gastrointestinal: Yes: Soft, Hypoactive Bowel Sounds, Tenderness (RUQ) Neurological: Yes: Alert, Oriented Psychiatric: Yes: Alert, Oriented Labs: CBC, BMP 09/30/18 05:43 09/30/18 05:43 INR, PTT INR 1.03 (0.83-1.09) 09/30/18 01:48 - ....Imaging X-ray: Report Reviewed Cat Scan: Report Reviewed <Steph Samuels - Last Filed: 10/01/18 07:32> - Current Medication List Current Medications: Active Medications Acetaminophen (Ofirmev Injection -) 1,000 mg IVPB Q6H PRN PRN Reason: pain Sodium Chloride (Normal Saline -) 1,000 mls @ 150 mls/hr IV ASDIR RACHEL Stop: 10/02/18 14:54 Last Admin: 10/01/18 09:39 Dose: 150 mls/hr Piperacillin Sod/Tazobactam (Sod 3.375 gm/ Dextrose) 50 mls @ 100 mls/hr IVPB Q8H-IV RACHEL; Protocol Last Admin: 10/01/18 17:10 Dose: 100 mls/hr - Objective Vital Signs: Vital Signs Temperature 98.5 F 10/01/18 17:20 Pulse Rate 69 10/01/18 17:20 Respiratory Rate 18 10/01/18 17:20 Blood Pressure 102/65 10/01/18 17:20 O2 Sat by Pulse Oximetry (%) 100 09/30/18 21:00 Labs: CBC, BMP 09/30/18 05:43 10/01/18 08:53 INR, PTT INR 1.03 (0.83-1.09) 09/30/18 01:48 <Javad Grijalva - Last Filed: 10/01/18 18:09> Problem List - Problems (1) Dilated cbd, acquired Assessment/Plan: -previous history of gastric bypass -MRCP to R/O CBD stone--if CBD stone present will need to transfer to tertiary center for further management Code(s): K83.8 - OTHER SPECIFIED DISEASES OF BILIARY TRACT (2) Small bowel obstruction Assessment/Plan: -SBO R/O Small Bowel Ischemia -IV hydration NS at 150cc/hr -NGT to LCS -serial abdominal exams -surgical follow up -NPO Code(s): K56.609 - UNSP INTESTNL OBST, UNSP TO PARTIAL VERSUS COMPLETE OBST <Steph Samuels - Last Filed: 10/01/18 07:32> - Problems (1) Small bowel obstruction Code(s): K56.609 - UNSP INTESTNL OBST, UNSP TO PARTIAL VERSUS COMPLETE OBST (2) Dilated cbd, acquired Code(s): K83.8 - OTHER SPECIFIED DISEASES OF BILIARY TRACT <Javad Grijalva - Last Filed: 10/01/18 18:09>
--- NOTE | 2018-10-01 08:51 | PN ---
Progress Note (short form) - Note Progress Note: Pt seen and examined. States she is doing "okay". Was able to sleep a bit despite discomfort from NGT. Denies n/v overnight. NPO. Has been oob to restroom. Passing flatus overnight, no BM. Denies cp/sob. Vital Signs Temp 99.3 F 10/01/18 06:00 Pulse 78 10/01/18 06:00 Resp 18 10/01/18 06:00 BP 115/70 10/01/18 06:00 Pulse Ox 100 09/30/18 21:00 Intake & Output 09/30/18 09/30/18 10/01/18 11:59 23:59 11:59 Intake Total 3100 1100 1100 Output Total 450 Balance 2650 1100 1100 Weight 200 lb 204 lb Intake: IV 3000 1000 1050 D5-1/2Ns - 1,000 ml @ 75 1000 mls/hr IV ASDIR RACHEL Rx#: [id number] LACTATED RINGERS SOLUTION 1000 1,000 ml In 1,000 ml @ 1000 mls/hr IV ONCE STA Rx#:[id number] NS 1050 Normal Saline - 1,000 ml 1000 1000 @ 1000 mls/hr IV ASDIR STA Rx#:[id number] IVPB 100 100 50 Oral 0 0 Output: Gastric Drainage 300 Emesis 150 Other: Voiding Method Toilet Toilet # Unmeasured Voids Void 1 Bowel Movement No Height 5 ft 6 in 5 ft 6 in Body Mass Index (BMI) 32.3 32.9 Weight Measurement Method Standing Scale Weight Measurement Method Est/Stated by Patient Gen: awake, alert, nad Resp: Unlabored on RA Abdo: soft, slightly ttp in ruq. No rebound or guarding, +bowel sounds. NGT with approx 125ml with white drainage with scant bile A/P: 43 y/o female w/ h/o morbid obesity s/p open RYGB (10 years ago), now a/w n /v and generalized abdo pain, found to have SBO. Morning labs pending. AXR pending -Keep NGT in place to low wall suction -NPO, IVF -will follow up labs/xray d/w attending Dr Cloud
[2018-10-01 11:28] LABS: ALBUMIN 2.8 g/dl (3.4-5.0); ALK PHOS 68 U/L (45-117); ANION GAP 6 MMOL/L (8-16); BLOOD UREA NITROGEN 7 mg/dL (7-18); CALCIUM 8.3 mg/dL (8.5-10.1); CHLORIDE 110 mmol/L (98-107); CO2 26 mmol/L (21-32); CREATININE 0.8 mg/dL (0.55-1.3); GLUCOSE,RANDOM 94 mg/dL (74-106); POTASSIUM 4.6 mmol/L (3.5-5.1); SGOT/AST 25 U/L (15-37); SGPT/ALT 34 U/L (13-61); SODIUM 142 mmol/L (136-145); TOT PROT 5.3 g/dl (6.4-8.2)
--- NOTE | 2018-10-01 18:11 | PN ---
Progress Note (short form) - Note Progress Note: patient FUA reviewe- non-specific gas pattern, negligible NGT return, if ok with surgery clamp NGT and start clear liquids. Problem List - Problems (1) Small bowel obstruction Code(s): K56.609 - UNSP INTESTNL OBST, UNSP TO PARTIAL VERSUS COMPLETE OBST (2) Dilated cbd, acquired Code(s): K83.8 - OTHER SPECIFIED DISEASES OF BILIARY TRACT
--- NOTE | 2018-10-01 22:11 | PN ---
Progress Note, Physician - Current Medication List Current Medications: Active Medications Acetaminophen (Ofirmev Injection -) 1,000 mg IVPB Q6H PRN PRN Reason: pain Sodium Chloride (Normal Saline -) 1,000 mls @ 150 mls/hr IV ASDIR RACHEL Stop: 10/02/18 14:54 Last Admin: 10/01/18 09:39 Dose: 150 mls/hr Piperacillin Sod/Tazobactam (Sod 3.375 gm/ Dextrose) 50 mls @ 100 mls/hr IVPB Q8H-IV RACHEL; Protocol Last Admin: 10/01/18 17:10 Dose: 100 mls/hr - Objective Vital Signs: Vital Signs Temperature 98.5 F 10/01/18 17:20 Pulse Rate 69 10/01/18 17:20 Respiratory Rate 18 10/01/18 17:20 Blood Pressure 102/65 10/01/18 17:20 O2 Sat by Pulse Oximetry (%) 100 09/30/18 21:00 Labs: CBC, BMP 09/30/18 05:43 10/01/18 08:53 INR, PTT INR 1.03 (0.83-1.09) 09/30/18 01:48 Problem List - Problems (1) Dilated cbd, acquired Assessment/Plan: MRCP pending Cont IV antibxs Lactic acid now normal Code(s): K83.8 - OTHER SPECIFIED DISEASES OF BILIARY TRACT (2) Small bowel obstruction Assessment/Plan: NGT removed Tolerating clear liquids Advance diet as per surgery Code(s): K56.609 - UNSP INTESTNL OBST, UNSP TO PARTIAL VERSUS COMPLETE OBST
[2018-10-02] MEDS ORDERED: PIPERACILLIN/TAZOBACTAM 3.375 GM VIAL IVPB ONE ×2 (00:37→09:16)
[2018-10-02] MEDS ORDERED: DEXTROSE 5%-WATER - 50 ML IVPB ONE ×2 (00:37→09:16)
[2018-10-02] MEDS: PIPERACILLIN/TAZOB 3.375 GM 3.375 GM in DEXTROSE 5%-WATER - 50 ML IVPB SCH ×2 (02:22→09:28)
[2018-10-02 06:45] LABS: ALBUMIN 2.7 g/dl (3.4-5.0); ALK PHOS 65 U/L (45-117); ANION GAP 5 MMOL/L (8-16); BILIRUBIN,TOTAL 1.1 mg/dL (0.2-1); BLOOD UREA NITROGEN 5 mg/dL (7-18); CALCIUM 8.6 mg/dL (8.5-10.1); CHLORIDE 108 mmol/L (98-107); CO2 28 mmol/L (21-32); CREATININE 0.8 mg/dL (0.55-1.3); GLUCOSE,RANDOM 86 mg/dL (74-106); POTASSIUM 4.7 mmol/L (3.5-5.1); SGOT/AST 22 U/L (15-37); SGPT/ALT 28 U/L (13-61); SODIUM 142 mmol/L (136-145); TOT PROT 5.2 g/dl (6.4-8.2)
[2018-10-02 07:10] LABS: BASO % 0.5 % (0-2.0); EOS % 2.6 % (0-4.5); HEMATOCRIT 33.9 % (32.4-45.2); HEMOGLOBIN 11.3 GM/dL (10.7-15.3); LYMPH % 41.4 % (8-40); MCH 29.7 pg (25.7-33.7); MCHC 33.2 g/dl (32.0-36.0); MEAN CELL VOLUME 89.2 fl (80-96); MEAN PLT VOLUME 9.1 fl (7.5-11.1); MONO % 6.5 % (3.8-10.2); PLATELET COUNT 207 K/MM3 (134-434); RDW 13.3 % (11.6-15.6); WHITE BLOOD COUNT 5.1 K/mm3 (4.0-10.0)
--- NOTE | 2018-10-02 09:14 | PN ---
Progress Note (short form) - Note Progress Note: covering for Dr Bejarano Patient is a 43 y/o female with no significant past medical history. Hx obtained at ER reports after eating dinner she develop right sided abdominal pain accompanied with abdominal bloating. Patient took Milk of Magnesia without relief. Shortly after patient began experiencing nausea with vomiting. At first vomit consisted of food contents then turned to a "phlegm" color. While vomiting patient stated she felt sweaty and had chills. While in ER labs initially noted with leukocytosis (WBC 14,900), elevated lactic acid 2.5, elevated lipase 457, normal LFTs and amylase. In ER NGT placed -- and responded to conservative management NGT removed 10/01 and diet was advanced successfully denies N/V passing flatus but no BM Vital Signs Period Temp Pulse Resp BP Sys/Crockett Pulse Ox Last 24 Hr 98.1 F-98.7 F 59-86 18-20 102-119/65-78 99 neck supple heart S1./S2 lungs evangelist bilat abd soft BS + X4Q surgical scars well healed ext no edema CBC, BMP 10/02/18 05:30 10/02/18 05:30 MRCP pending Active Medications Acetaminophen (Ofirmev Injection -) 1,000 mg IVPB Q6H PRN PRN Reason: pain Sodium Chloride (Normal Saline -) 1,000 mls @ 150 mls/hr IV ASDIR RACHEL Stop: 10/02/18 14:54 Last Admin: 10/02/18 09:28 Dose: Not Given Assessment/Plan # SBO -- resolved s/p NGT tolerating diet no N/V WBC nl MRCP done - awaitng results to discuss with surgery / GI for disposition
--- NOTE | 2018-10-02 09:17 | PN ---
Progress Note, Physician History of Present Illness: GI FOLLOW UP NOTE Patient examined and case discussed with Dr. Grijalva Patient states abdominal pain has improved. NGT removed and is tolerating regular diet. Abdominal MRCP done and official results pending. No reports of having BM but states is passing flatus. Patient denies abdominal pain, nausea, vomiting. - Current Medication List Current Medications: Active Medications Acetaminophen (Ofirmev Injection -) 1,000 mg IVPB Q6H PRN PRN Reason: pain Sodium Chloride (Normal Saline -) 1,000 mls @ 150 mls/hr IV ASDIR RACHEL Stop: 10/02/18 14:54 Last Admin: 10/01/18 09:39 Dose: 150 mls/hr Piperacillin Sod/Tazobactam (Sod 3.375 gm/ Dextrose) 50 mls @ 100 mls/hr IVPB Q8H-IV RACHEL; Protocol Last Admin: 10/02/18 02:22 Dose: 100 mls/hr - Objective Vital Signs: Vital Signs Temperature 98.5 F 10/02/18 06:00 Pulse Rate 59 L 10/02/18 06:00 Respiratory Rate 18 10/02/18 06:00 Blood Pressure 117/70 10/02/18 06:00 O2 Sat by Pulse Oximetry (%) 99 10/01/18 21:00 Constitutional: Yes: No Distress, Calm Eyes: Yes: Conjunctiva Clear HENT: Yes: Atraumatic Cardiovascular: Yes: Regular Rate and Rhythm Respiratory: Yes: Regular, CTA Bilaterally Gastrointestinal: Yes: Normal Bowel Sounds, Soft. No: WNL, Abdomen, Obese, Ascites, Distention, Hematemesis, Hemorrhoids, Hepatomegaly, Hernia, Hyperactive Bowel Sounds, Hypoactive Bowel Sounds, Melena, Palpable Mass, Pulsatile Mass, Rectal Bleeding, Splenomegaly, Tenderness, Tenderness, Epigastrium, Tenderness, Rebound, Vomiting, Other Neurological: Yes: Alert, Oriented Psychiatric: Yes: Alert, Oriented Labs: CBC, BMP 10/02/18 05:30 10/02/18 05:30 INR, PTT INR 1.03 (0.83-1.09) 09/30/18 01:48 Problem List - Problems (1) Dilated cbd, acquired Assessment/Plan: -previous history of gastric bypass -MRCP to R/O CBD stone--if CBD stone present will need to transfer to tertiary center for further management--pending official results Code(s): K83.8 - OTHER SPECIFIED DISEASES OF BILIARY TRACT (2) Small bowel obstruction Assessment/Plan: -SBO R/O Small Bowel Ischemia -serial abdominal exams -surgical follow up -tolerating regular diet -instructed to follow up as outpatient for further GI management Code(s): K56.609 - UNSP INTESTNL OBST, UNSP TO PARTIAL VERSUS COMPLETE OBST
--- NOTE | 2018-10-02 09:22 | PN ---
Progress Note (short form) - Note Progress Note: 43yo F h/o SBO, seen and examined at bedside. Pt states that her abd feels completely benign today. Denies n/v, fever, chills. Pt states that she is tolerating clears, but does not feel particularly hungry. Pt states passing flatus. Last Vital Signs Temp Pulse Resp BP Pulse Ox 98.5 F 59 L 18 117/70 99 10/02/18 06:00 10/02/18 06:00 10/02/18 06:00 10/02/18 06:00 10/01/18 21:00 CBC, BMP 10/02/18 05:30 10/02/18 05:30 PE: Gen: A&O x3 Resp: breathing comfortably Abd: soft, nontender, nondistended Ext: no edema DX: SBO Plan -will advance diet today to regular -f/up abd x-ray -if pt remains asymptomatic consider discharge home today, cleared from surgical standpoint.
[2018-10-02] MEDS: SODIUM CHLORIDE 1,000 ML IV SCH (09:28)
--- NOTE | 2018-10-02 09:44 | PN ---
Progress Note, Physician History of Present Illness: doing much better abd soft ng tube removed no complaints - Current Medication List Current Medications: Active Medications Acetaminophen (Ofirmev Injection -) 1,000 mg IVPB Q6H PRN PRN Reason: pain Sodium Chloride (Normal Saline -) 1,000 mls @ 150 mls/hr IV ASDIR RACHEL Stop: 10/02/18 14:54 Last Admin: 10/02/18 09:28 Dose: Not Given Piperacillin Sod/Tazobactam (Sod 3.375 gm/ Dextrose) 50 mls @ 100 mls/hr IVPB Q8H-IV RACHEL; Protocol Last Admin: 10/02/18 09:28 Dose: 100 mls/hr - Objective Vital Signs: Vital Signs Temperature 98.7 F 10/02/18 09:26 Pulse Rate 80 10/02/18 09:26 Respiratory Rate 18 10/02/18 09:26 Blood Pressure 115/66 10/02/18 09:26 O2 Sat by Pulse Oximetry (%) 99 10/01/18 21:00 Constitutional: Yes: No Distress, Calm Cardiovascular: Yes: S1, S2 Respiratory: Yes: Regular, CTA Bilaterally Gastrointestinal: Yes: Hypoactive Bowel Sounds Musculoskeletal: Yes: WNL Extremities: Yes: WNL Neurological: Yes: Alert, Oriented Psychiatric: Yes: Alert, Oriented Labs: CBC, BMP 10/02/18 05:30 10/02/18 05:30 INR, PTT INR 1.03 (0.83-1.09) 09/30/18 01:48 Assessment/Plan high grade int obstruction nausea vomiting leukocytosis plan continue empric abx monitor for bowel fn to return rest as per the team and surgery
--- NOTE | 2018-10-02 09:45 | PN ---
Progress Note, Physician History of Present Illness: stable no new issues passing flatus - Current Medication List Current Medications: Active Medications Acetaminophen (Ofirmev Injection -) 1,000 mg IVPB Q6H PRN PRN Reason: pain Sodium Chloride (Normal Saline -) 1,000 mls @ 150 mls/hr IV ASDIR RACHEL Stop: 10/02/18 14:54 Last Admin: 10/02/18 09:28 Dose: Not Given Piperacillin Sod/Tazobactam (Sod 3.375 gm/ Dextrose) 50 mls @ 100 mls/hr IVPB Q8H-IV RACHEL; Protocol Last Admin: 10/02/18 09:28 Dose: 100 mls/hr - Objective Vital Signs: Vital Signs Temperature 98.7 F 10/02/18 09:26 Pulse Rate 80 10/02/18 09:26 Respiratory Rate 18 10/02/18 09:26 Blood Pressure 115/66 10/02/18 09:26 O2 Sat by Pulse Oximetry (%) 99 10/01/18 21:00 Constitutional: Yes: No Distress, Calm Cardiovascular: Yes: S1, S2 Respiratory: Yes: Regular, CTA Bilaterally Gastrointestinal: Yes: Normal Bowel Sounds, Soft Musculoskeletal: Yes: WNL Extremities: Yes: WNL Neurological: Yes: Alert, Oriented Psychiatric: Yes: Alert, Oriented Labs: CBC, BMP 10/02/18 05:30 10/02/18 05:30 INR, PTT INR 1.03 (0.83-1.09) 09/30/18 01:48 Assessment/Plan high grade int obstruction nausea vomiting leukocytosis plan will stop abx and watch rest as per the team
--- NOTE | 2018-10-02 15:42 | DS ---
Physical Examination Vital Signs: Vital Signs Temperature 98.5 F 10/02/18 14:10 Pulse Rate 83 10/02/18 14:10 Respiratory Rate 20 10/02/18 14:10 Blood Pressure 133/84 10/02/18 14:10 O2 Sat by Pulse Oximetry (%) 99 10/01/18 21:00 Findings/Remarks: Patient is a 43 y/o female with no significant past medical history. Hx obtained at ER reports after eating dinner she develop right sided abdominal pain accompanied with abdominal bloating. Patient took Milk of Magnesia without relief. Shortly after patient began experiencing nausea with vomiting. At first vomit consisted of food contents then turned to a "phlegm" color. While vomiting patient stated she felt sweaty and had chills. While in ER labs initially noted with leukocytosis (WBC 14,900), elevated lactic acid 2.5, elevated lipase 457, normal LFTs and amylase. In ER NGT placed -- and responded to conservative management NGT removed 10/01 and diet was advanced successfully denies N/V passing flatus but no BM Assessment/Plan # SBO -- resolved s/p NGT tolerating diet no N/V WBC nl MRCP done - report negative for acute path will follow up with GI and PCP as out patient this week Constitutional: Yes: Well Nourished, No Distress Eyes: Yes: Conjunctiva Clear, EOM Intact HENT: Yes: Atraumatic, Normocephalic Neck: Yes: Supple, Trachea Midline Cardiovascular: Yes: Regular Rate and Rhythm Respiratory: Yes: Regular Gastrointestinal: Yes: Normal Bowel Sounds, Soft ...Rectal Exam: Yes: WNL Renal/: Yes: WNL Musculoskeletal: Yes: WNL Extremities: Yes: WNL Edema: No Peripheral Pulses WNL: Yes Integumentary: Yes: WNL Neurological: Yes: WNL Psychiatric: Yes: WNL, Alert, Oriented Labs: CBC, BMP 10/02/18 05:30 10/02/18 05:30 Discharge Summary Reason For Visit: ACQUIRED DILATION OF COMMON BILE DUCT LEUKOCYTOSIS Current Active Problems Dilated cbd, acquired (Acute) Small bowel obstruction (Acute) Condition: Improved - Instructions Disposition: HOME - Home Medications Comprehensive Discharge Medication List: Ambulatory Orders NK [No Known Home Medication] 03/12/16
[2018-10-02 17:33] VITALS: BP 107/68; PULSE 71; TEMP 98.9
== END 2018-10-02 19:17 | disposition home or self-care (01) | DRG 247 ==
LOC: JER 23:31 → JERBED 09-30 02:55 → J7W 09-30 20:38
PROVIDERS: ADMIT Internal Medicine; ATTEND Internal Medicine
DX: K56.609 Unspecified intestinal obstruction, unspecified as to partial versus complete obstruction (principal); E87.2 Acidosis; K83.8 Other specified diseases of biliary tract; D72.829 Elevated white blood cell count, unspecified; N20.0 Calculus of kidney; Z98.84 Bariatric surgery status; Z80.0 Family history of malignant neoplasm of digestive organs
CPT/HCPCS: 36415; 71045-TC-FY; 74019-TC-FY; 74177-TC; 74182-TC; 76705-TC; 80053; 82150; 83605; 83690; 84484; 84703; 85025; 85610; 86850; 86900; 86901; 87081; 93005; 93010; 99285-25; J0131; J7030

== ENCOUNTER 2021-01-17 01:26 | Inpatient (IN) | payer OTHER ==
[2021-01-17] MEDS ORDERED: SUCRALFATE 1 GM TABLET (FP) PO ONE (02:56)
[2021-01-17] MEDS ORDERED: SUCRALFATE 1 GM TABLET (FP) ONE (03:50)
[2021-01-17 05:14] LABS: ALBUMIN 3.9 g/dl (3.4-5.0); BLOOD UREA NITROGEN 16.1 mg/dL (7-18); CALCIUM 8.9 mg/dL (8.5-10.1)
[2021-01-17 05:16] LABS: CREATININE 0.8 mg/dL (0.55-1.3)
[2021-01-17 05:18] LABS: BILIRUBIN,TOTAL 0.5 mg/dL (0.2-1); TOT PROT 7.5 g/dl (6.4-8.2)
[2021-01-17 05:24] LABS: BASO % 0.3 % (0-2.0); EOS % 0.8 % (0-4.5); HEMATOCRIT 36.7 % (32.4-45.2); HEMOGLOBIN 11.8 GM/dL (10.7-15.3); LYMPH % 19.2 % (8-40); MCH 26.2 pg (25.7-33.7); MCHC 32.2 g/dl (32.0-36.0); MEAN CELL VOLUME 81.3 fl (80-96); MEAN PLT VOLUME 9.1 fl (7.5-11.1); MONO % 5.1 % (3.8-10.2); NEUT % 74.6 % (42.8-82.8); PLATELET COUNT 290 10^3/uL (134-434); RBC 4.52 M/mm3 (3.60-5.2); RDW 15.6 % (11.6-15.6); WHITE BLOOD COUNT 10.1 K/mm3 (4.0-10.0)
[2021-01-17] MEDS ORDERED: morphine CARPU-JECT 2 MG/1 ML DISP.SYRIN IVPUSH ONE (05:53)
[2021-01-17] MEDS ORDERED: MORPHINE SULFATE 2 MG/ML VIAL ONE (05:55)
[2021-01-17] MEDS ORDERED: SODIUM CHLORIDE 1,000 ML IV SCH (08:00)
[2021-01-17] MEDS ORDERED: ACETAMINOPHEN 1000 MG/100 ML VIAL (NON FORMULARY) IVPB PRN (22:14)
[2021-01-17] MEDS ORDERED: ONDANSETRON 4 MG/2 ML VIAL IVPUSH PRN (22:14)
[2021-01-17 23:19] VITALS: BMI 28.1
[2021-01-18] MEDS: DEXTROSE 5%-0.45% SALINE 1,000 ML IV SCH ×2 (00:52→17:28)
[2021-01-18 07:30] LABS: BLOOD UREA NITROGEN 10.6 mg/dL (7-18); CALCIUM 7.9 mg/dL (8.5-10.1)
[2021-01-18 07:33] LABS: BASO % 0.8 % (0-2.0); CREATININE 0.6 mg/dL (0.55-1.3); EOS % 2.7 % (0-4.5); HEMATOCRIT 32.8 % (32.4-45.2); HEMOGLOBIN 10.6 GM/dL (10.7-15.3); LYMPH % 41.5 % (8-40); MCH 26.1 pg (25.7-33.7); MCHC 32.2 g/dl (32.0-36.0); MEAN PLT VOLUME 9.2 fl (7.5-11.1); MONO % 7.8 % (3.8-10.2); NEUT % 47.2 % (42.8-82.8); PLATELET COUNT 221 10^3/uL (134-434); RBC 4.05 M/mm3 (3.60-5.2); RDW 16.2 % (11.6-15.6); WHITE BLOOD COUNT 5.1 K/mm3 (4.0-10.0)
[2021-01-18 07:36] LABS: ALBUMIN 2.9 g/dl (3.4-5.0); BILIRUBIN,TOTAL 0.8 mg/dL (0.2-1); TOT PROT 5.5 g/dl (6.4-8.2)
[2021-01-18 08:47] LABS: PLATELET ESTIMATE NORMAL
[2021-01-18] MEDS ORDERED: PT OWN MED DRAWER 7, Y5N ONE ×2 (09:19→21:57)
[2021-01-18] MEDS: ENOXAPARIN NA (PORCINE) 40 MG/0.4 ML DISP.SYRIN SQ SCH (09:44)
[2021-01-18] MEDS: SUCRALFATE 1 GM TABLET (FP) PO SCH ×2 (09:44→21:59)
[2021-01-19] MEDS: DEXTROSE 5%-0.45% SALINE 1,000 ML IV SCH (06:06)
[2021-01-19] MEDS ORDERED: PT OWN MED DRAWER 7, Y5N ONE (09:01)
[2021-01-19] MEDS: ENOXAPARIN NA (PORCINE) 40 MG/0.4 ML DISP.SYRIN SQ SCH (09:21)
[2021-01-19] MEDS: SUCRALFATE 1 GM TABLET (FP) PO SCH (09:22)
[2021-01-19 13:43] VITALS: BP 116/67; PULSE 91; TEMP 98.3
== END 2021-01-19 18:19 | disposition home or self-care (01) | DRG 247 ==
LOC: JER 01:26 → JERBED 07:45 → J4S 21:47
PROVIDERS: ADMIT Family Medicine Geriatric Medicine; ATTEND Family Medicine Geriatric Medicine
DX: K56.609 Unspecified intestinal obstruction, unspecified as to partial versus complete obstruction (principal); Z98.84 Bariatric surgery status
CPT/HCPCS: 36415; 74019-TC-FY; 74177-TC; 80053; 83690; 85025; 99285-25; C9803; U0003; U0005

== ENCOUNTER 2021-04-28 04:59 | Day surgery (SDC) | payer OTHER ==
[2021-04-27 15:51] VITALS: BMI 28.2
[2021-04-28] MEDS ORDERED: IBUPROFEN 400 MG TABLET (FP) PO PRN (06:14)
[2021-04-28] MEDS ORDERED: ACETAMINOPHEN 325 MG TABLET (FP) PO PRN (06:14)
[2021-04-28] MEDS ORDERED: ONDANSETRON 4 MG/2 ML VIAL IVPUSH PRN (07:37)
[2021-04-28] MEDS ORDERED: oxyCODONE HCL 5 MG TABLET PO PRN ×2 (07:37)
[2021-04-28] MEDS ORDERED: PROMETHAZINE HCL 25 MG/1 ML VIAL IVPUSH PRN (07:37)
[2021-04-28] MEDS ORDERED: LACTATED RINGERS SOLUTION 1,000 ML IV SCH (07:45)
[2021-04-28 12:47] VITALS: BP 100/69; PULSE 68; TEMP 97.8
== END 2021-04-28 12:50 | disposition home or self-care (01) ==
LOC: JASU-SURG 04:59
PROVIDERS: ATTEND Obstetrics & Gynecology
PROC: 0UB98ZZ Excision of Uterus, Via Natural or Artificial Opening Endoscopic (ICD-10-PCS; principal; 2021-04-28 09:00)
PROC: 0UDB8ZX Extraction of Endometrium, Via Natural or Artificial Opening Endoscopic, Diagnostic (ICD-10-PCS; 2021-04-28 09:00)
DX: D25.0 Submucous leiomyoma of uterus (principal); N84.0 Polyp of corpus uteri
CPT/HCPCS: 81025; 88305-TC; 94760

== ENCOUNTER → 2022-12-22 | Day surgery (SDC) | payer OTHER | END | disposition home or self-care (01) | LOC: JRADIR 10:16 | PROVIDERS: ATTEND Family Medicine Geriatric Medicine | PROC: 0G9G3ZX Drainage of Left Thyroid Gland Lobe, Percutaneous Approach, Diagnostic (ICD-10-PCS; principal; 2022-12-22) | DX: E04.1 Nontoxic single thyroid nodule (principal) | CPT/HCPCS: 10005; 76942; 88173; 88305-TC ==

== ENCOUNTER 2025-01-22 18:35 | Inpatient (IN) | payer OTHER ==
[2025-01-22 18:41] VITALS: BMI 30.7
[2025-01-22] MEDS ORDERED: ACETAMINOPHEN INJECTION 100 ML ONE (19:43)
[2025-01-22] MEDS: ACETAMINOPHEN 1000 MG/100 ML BAG IVPB ONE (20:02)
[2025-01-22] MEDS: morphine CARPU-JECT 2 MG/1 ML DISP.SYRIN IVPUSH ONE (20:07)
[2025-01-22] MEDS: LACTATED RINGERS SOLUTION 1000 ML INFUS.BAG IV ONE (20:13)
[2025-01-22] MEDS: SIMETHICONE 40 MG/0.6 ML BOTTLE PO ONE (20:16)
[2025-01-22 20:30] LABS: MCHC 27.7 g/dl (32.2-35.5); MEAN CELL VOLUME 70.1 fl (79.4-94.8); MEAN PLT VOLUME 9.5 fl (9.4-12.3); RDW 19.7 % (12.2-17.1)
[2025-01-22 20:36] LABS: INR 1.06 (0.83-1.09); PROTHROMBIN TIME (PATIENT) 11.7 SEC (9.7-13.0)
[2025-01-22 20:39] LABS: ACTIVATED PTT 39.1 SECONDS (25.2-36.5)
[2025-01-22 22:41] LABS: ALK PHOS 128.0 U/L (40-150); CO2 23.0 mmol/L (21-32); CREATININE 0.73 mg/dL (0.55-1.3); GLUCOSE,RANDOM 113.0 mg/dL (74-106); SGOT/AST 40.0 U/L (5-34); SGPT/ALT 46.0 U/L (0-55); TOT PROT 7.3 g/dl (6.4-8.2)
[2025-01-23] MEDS: LACTATED RINGERS SOLUTION 1,000 ML IV SCH (03:23)
[2025-01-23 08:32] LABS: ABSOLUTE IMMATURE GRANULOCYTES 0.02 x10^3/uL (0.0-0.031); BASOPHILS # 0.04 x10^3/uL (0.01-0.08); EOSINOPHIL % 1.3 % (0.7-5.8); EOSINOPHILS # 0.09 x10^3/uL (0.04-0.36); MCHC 28.0 g/dl (32.2-35.5); MEAN CELL VOLUME 69.8 fl (79.4-94.8); MEAN PLT VOLUME 9.7 fl (9.4-12.3); MONOCYTE # 0.56 x10^3/uL (0.24-0.86); MONOCYTE % 8.0 % (4.7-12.5); RDW 18.9 % (12.2-17.1)
[2025-01-23 09:18] LABS: GLUCOSE,RANDOM 78.0 mg/dL (74-106); TOT PROT 5.5 g/dl (6.4-8.2)
[2025-01-23 09:19] LABS: CO2 26.0 mmol/L (21-32)
[2025-01-23 09:23] LABS: SGOT/AST 28.0 U/L (5-34); SGPT/ALT 32.0 U/L (0-55)
[2025-01-23 09:24] LABS: CREATININE 0.71 mg/dL (0.55-1.3)
[2025-01-23 09:44] LABS: ALK PHOS 112.0 U/L (40-150)
[2025-01-23 15:30] VITALS: RESP 18; TEMP 98.9
[2025-01-23 15:34] VITALS: BP 120/81; PULSE 60
[2025-01-24 18:14] LABS: HCV DIAGNOSTIC IN-HOUSE W/RFLX NON-REACTIVE (NONREACTIVE); HIV INTERPRETATION NEGATIVE (NEGATIVE)
== END 2025-01-23 17:15 | disposition left against medical advice (07) | DRG 247 ==
LOC: JER 18:35 → JERBED 01-23 00:33 → OBSVTOIN 01-23 01:51 → J5S 01-23 03:20
PROVIDERS: ADMIT Family Medicine; ATTEND Internal Medicine
DX: K56.600 Partial intestinal obstruction, unspecified as to cause (principal); D64.9 Anemia, unspecified; R10.11 Right upper quadrant pain; K56.7 Ileus, unspecified; R14.0 Abdominal distension (gaseous); Z98.84 Bariatric surgery status
CPT/HCPCS: 36415; 71045-TC-FY; 74019-TC-FY; 74177-TC; 80053; 83690; 83735; 84100; 84703; 85025; 85027; 85610; 85730; 86803; 86850; 86900; 86901; 87389; 99285-25; G0378; Q9967